=== PATIENT | female | born 1960 | race Hispanic/Latino ===

== ENCOUNTER 2017-06-25 11:47 | Emergency (ER) | payer MEDICARE ==
[2017-06-25 11:56] VITALS: TEMP 98.2
--- NOTE | 2017-06-25 12:19 | ED PDOC ---
Arrival/HPI - General Chief Complaint: Lower Extremity Problem/Injury Time Seen by Provider: 06/25/17 12:14 - History of Present Illness Narrative History of Present Illness (Text): 56 y/o female w/ no sig acknowledged pmhx presents c/o approximately 4-7 days of left 3rd toe mtcp joint atraumatic pain worse w/ ambulation and dorsiflexion of the joint. Denies hx of arthritides/preexisting LE joint pain that could have caused collateral injury to are in question . Denies any other joint pains/ calf pain/posterior fossa swelling/ttp . . 06/25/17 12:16 Past Medical History - Provider Review Nursing Documentation Reviewed: Yes - Reproductive Menopause: Yes - Cardiac Hx Cardiac Disorders: No - Pulmonary Hx Respiratory Disorders: No - Neurological Hx Neurological Disorder: No - HEENT Hx HEENT Disorder: No - Renal Hx Renal Disorder: No - Endocrine/Metabolic Hx Endocrine Disorders: No - Hematological/Oncological Hx Blood Disorders: No - Integumentary Hx Dermatological Disorder: No - Musculoskeletal/Rheumatological Hx Musculoskeletal Disorders: No - Gastrointestinal Hx Gastrointestinal Disorders: No - Genitourinary/Gynecological Hx Genitourinary Disorders: No - Psychiatric Hx Psychophysiologic Disorder: Yes Hx Anxiety: Yes Hx Depression: Yes Hx Substance Use: No Family/Social History - Physician Review Nursing Documentation Reviewed: Yes Family/Social History: No Known Family HX Smoking Status: Never Smoked Hx Alcohol Use: No Hx Substance Use: No Allergies/Home Meds Allergies/Adverse Reactions: Allergies No Known Allergies Allergy (Verified 06/25/17 11:50) Home Medications: Home Meds Medication Instructions Recorded Confirmed Escitalopram [Lexapro] 10 mg PO DAILY 06/25/17 06/25/17 buPROPion SR [Wellbutrin SR 150 MG] 1 tab PO DAILY 06/25/17 06/25/17 Review of Systems - Physician Review All systems were reviewed & negative as marked: Yes - Review of Systems Constitutional: Normal Eyes: Normal ENT: Normal Respiratory: Normal Cardiovascular: Normal Gastrointestinal: Normal Genitourinary Female: Normal Musculoskeletal: Arthralgias Skin: Normal Neurological: Normal Endocrine: Normal Hemo/Lymphatic: Normal Psychiatric: Normal Physical Exam Vital Signs Reviewed: Yes Vital Signs Temp Pulse Resp BP Pulse Ox 06/25/17 12:08 87 18 138/82 98 06/25/17 11:51 98.2 F 87 16 138/82 100 Temperature: Afebrile Blood Pressure: Normal Pulse: Regular Respiratory Rate: Normal Appearance: Positive for: Well-Appearing, Non-Toxic, Comfortable Pain Distress: None Mental Status: Positive for: Alert and Oriented X 3 - Systems Exam Head: Present: Atraumatic, Normocephalic Pupils: Present: PERRL Extroacular Muscles: Present: EOMI Conjunctiva: Present: Normal Mouth: Present: Moist Mucous Membranes Neck: Present: Normal Range of Motion Respiratory/Chest: Present: Clear to Auscultation, Good Air Exchange. No: Respiratory Distress, Accessory Muscle Use Cardiovascular: Present: Regular Rate and Rhythm, Normal S1, S2. No: Murmurs Abdomen: Present: Normal Bowel Sounds. No: Tenderness, Distention, Peritoneal Signs Back: Present: Normal Inspection Upper Extremity: Present: Normal Inspection. No: Cyanosis, Edema Lower Extremity: Present: Other (left 2nd/toe 3rd toe interspace ttp, minimal ttp over left 3rd toe mtcp ). No: Edema Neurological: Present: GCS=15, CN II-XII Intact, Speech Normal Skin: Present: Warm, Dry, Normal Color. No: Rashes Psychiatric: Present: Alert, Oriented x 3, Normal Insight, Normal Concentration Medical Decision Making ED Course and Treatment: 06/25/17 12:57 56 y/o woman w/ no sig contributory pmhx prsents c/o under a week of atraumatic left foot pain, localized to 2nd/3rd mtcp joint interspace , as well as mild 3rd mtcp jointpain itself . Nosuspicion of lisfranc pathology. likley tendinitis vs arthritides nos .xray (-) Will d/c home on indomethacin /pepcid for pain and ortho f/u prn nonimprovement, as well as straight foot shoe. 06/25/17 13:01 - RAD Interpretation Radiology Orders: 06/25/17 12:14 FOOT LEFT 3 VIEWS ROUTINE [RAD] Stat - Medication Orders Current Medication Orders: Discontinued Medications Famotidine (Pepcid) 20 mg PO STAT STA Stop: 06/25/17 12:21 Last Admin: 06/25/17 12:40 Dose: 20 mg Indomethacin (Indocin) 25 mg PO STAT STA Stop: 06/25/17 12:21 Last Admin: 06/25/17 12:39 Dose: 25 mg MAR Pain Assessment Document 06/25/17 12:39 GMD (Rec: 06/25/17 12:40 GMD [facility] [id number][place] Pain Reassessment Is this a pain reassessment? No Sleep Is patient sleeping during reassessment? No Presence of Pain Presence of Pain Yes Disposition/Present on Arrival - Present on Arrival Any Indicators Present on Arrival: No History of DVT/PE: No History of Uncontrolled Diabetes: No Urinary Catheter: No History of Decub. Ulcer: No History Surgical Site Infection Following: None - Disposition Have Diagnosis and Disposition been Completed?: Yes Diagnosis: Tendinitis of toe, Arthritic-like pain Disposition: HOME/ ROUTINE Disposition Time: 13:02 Patient Plan: Discharge Condition: FAIR Discharge Instructions (ExitCare): Tendinitis (ED) Print Language: SAO TOMEAN Additional Instructions: REST/ICE/COMPRESSION WRAP (as needed for increased pain) /ELEVATE Prescriptions: Famotidine [Pepcid] 20 mg PO BID PRN #40 tab PRN Reason: Dyspepsia Indomethacin [Indocin] 25 mg PO Q8 PRN #50 cap PRN Reason: moderate pain Referrals: Mark Allison MD [Primary Care Provider] - Follow up with primary Nas Tapia III, MD [Medical Doctor] - Follow up with primary Forms: [employer] (Dutch)
[2017-06-25 12:35] VITALS: RESP 18; O2SAT 98
[2017-06-25 13:18] VITALS: BP 135/78; PULSE 79
--- NOTE | 2017-06-25 14:02 | RAD ---
PROCEDURE: Left Foot Radiographs. HISTORY: mtcp/phalangeal pain COMPARISON: None. FINDINGS: BONES: Normal. No fracture. JOINTS: Mild hallux valgus angulation SOFT TISSUES: Normal. OTHER FINDINGS: None. IMPRESSION: Mild hallux valgus angulation
== END 2017-06-25 13:19 | disposition home or self-care (01) ==
LOC: ED 11:47
DX: M77.52 Other enthesopathy of left foot and ankle (principal)